=== PATIENT | male | born 1970 | race Caucasian/White ===

== ENCOUNTER 2018-01-02 19:35 | Emergency (ER) | payer SELFPAY ==
[2018-01-02 19:52] LABS: #Basophils 0.1 thou/uL (0.0-0.2); #Eosinphils 0.1 thou/uL (0.0-0.7); #Lymphocytes 3.6 thou/uL (1.20-3.40); #Monocytes 0.5 thou/uL (0.11-0.59); #Neutrophils 5.1 thou/uL (1.40-6.50); %Basophils 1.3 % (0.0-1.0); %Lymphocytes 37.9 % (21.0-51.0); %Monocytes 5.3 % (0.0-10.0); %Neutrophils 54.5 % (42.0-75.0); Hemoglobin 15.1 g/dL (14.0-18.0); Mean Corpuscular HGB CONC 35.9 g/dL (32.0-36.0); Mean Corpuscular Hemoglobin 33.3 pg (27.0-31.0); Mean Corpuscular Volume 92.8 fL (78.0-98.0); Mean Platelet Volume 8.9 fL (7.4-10.4); Platelet Count 126 thou/uL (130-400); Red Blood Cell (RBC) Count 4.53 mill/uL (4.70-6.10); White Blood Cell (WBC) Count 9.4 thou/uL (4.8-10.8)
[2018-01-02 20:05] LABS: ALT (SGPT) 35 U/L (8-55); AST (SGOT) 50 U/L (5-34); Acetaminophen Less than 6.0 mcg/mL (10.0-30.0); Albumin 3.9 g/dL (3.5-5.0); Alkaline Phosphatase 93 U/L (40-150); Anion Gap 16 mmol/L (10-20); BUN (Urea Nitrogen) 7 mg/dL (8.9-20.6); Bilirubin, Total 0.7 mg/dL (0.2-1.2); Calc. Creatinine Clearance 0 mL/min (70-130); Calcium 8.3 mg/dL (7.8-10.44); Carbon Dioxide 22 mmol/L (22-29); Chloride 102 mmol/L (98-107); Estimated GFR-MDRD Greater than 90; Globulin 4.1 g/dL (2.4-3.5); Glucose 95 mg/dL (70-105); Potassium 3.9 mmol/L (3.5-5.1); Salicylate Less than 8.0 mg/dL (15.0-30.0); Sodium 136 mmol/L (136-145)
[2018-01-02 20:09] LABS: Alcohol 407 mg/dL (Less than 10)
[2018-01-02 20:10] LABS: CKMB 1.1 ng/mL (0-6.6); Troponin I Less than 0.010 ng/mL (< 0.028)
--- NOTE | 2018-01-02 20:26 | CT ---
CT OF THE BRAIN WITHOUT CONTRAST 01/02/18 INDICATION: Fall hitting head on sidewalk and disoriented and combative. COMPARISON: None. FINDINGS: There is a scalp contusion involving the right posterior occipital region. No definite acute infarct, hemorrhage or hydrocephalus is present. The septum pellucidum and third ventricle are midline. Skull is intact. Mastoid air cells are clear. Mild mucosal thickening is seen in the left maxillary sinus. IMPRESSION: No acute intracranial abnormality. POS: [facility]
--- NOTE | 2018-01-02 20:27 | RAD ---
PORTABLE CHEST 01/02/18 HISTORY: Chest pain, shortness of breath. Poor inspiration. Lungs show no evidence of focal infiltrate or significant effusion. Heart size is m ildly attenuated by this projection. Vascular markings are also accentuated by the poor inspiration. IMPRESSION: Suboptimal exam. No acute process identified. POS: [facility]
--- NOTE | 2018-01-02 21:22 | CT ---
CT CERVICAL SPINE 01/02/18 Multiple axial tomograms obtained through the cervical spine with multiplanar reconstruction. INDICATIONS: Fall with injury to neck. Cervical vertebrae maintain normal height and alignment. Disc spaces are preserved. No evidence of fr acture . IMPRESSION: No evidence of acute fracture. POS: [facility]
[2018-01-02] MEDS ORDERED: Adacel (T-DAP) 0.5 ML VIAL ONE (22:08)
[2018-01-02] MEDS ORDERED: Lidocaine 1% w/Epinephrine 1:100K 20 ML VIAL ONE (22:50)
[2018-01-02 23:23] LABS: Bilirubin Negative (Negative); Blood, Urine Negative (Negative); Clarity CLEAR (Clear); Glucose, Urine (Dipstick) Negative (Negative); Leukocyte Negative (Negative); Nitrite Negative (Negative); Protein, Urine (Dipstick) Negative (Neg-Trace); Specific Gravity, Urine 1.006 (1.002-1.036); Urobilinogen 0.2 mg/dL (0.2-1.0); pH, Urine 5.5 (5.0-9.0)
[2018-01-02 23:33] LABS: Amphetamine Not Detected (NotDetected); Barbiturates Screen Not Detected (NotDetected); Benzodiazepine Screen Not Detected (NotDetected); Cocaine Metabolite Screen Not Detected (NotDetected); Medtox Control Line Valid? VALID (VALID); Medtox Reader # READER 1; Methadone Not Detected (NotDetected); Methamphetamine Not Detected (NotDetected); Opiate Screen Not Detected (NotDetected); Oxycodone Screen Not Detected (NotDetected); Phencyclidine (PCP) Not Detected (NotDetected); THC/Cannabinoid Screen Not Detected (NotDetected); Tricyclic Screen Not Detected (NotDetected)
== END 2018-01-03 06:25 | disposition home or self-care (01) ==
LOC: ERS 19:35
DX: S01.03XA Puncture wound without foreign body of scalp, initial encounter (principal); F10.129 Alcohol abuse with intoxication, unspecified; R41.82 Altered mental status, unspecified; I10 Essential (primary) hypertension; F17.220 Nicotine dependence, chewing tobacco, uncomplicated; W01.198A Fall on same level from slipping, tripping and stumbling with subsequent striking against other object, initial encounter
CPT/HCPCS: 36416; 70450; 71045; 72125; 80053; 80306; 80307; 81003; 82140; 82553; 84484; 85025; 90471; 90715; 96360; 96361; G0390; J2001